=== PATIENT | male | born 1960 | race Caucasian/White ===

== ENCOUNTER 2018-03-09 05:18 | Emergency (ER) | payer OTHER ==
--- NOTE | 2018-03-09 05:48 | EDM.PDOC ---
ED HPI GENERAL MEDICAL PROBLEM - General Chief Complaint: Lower Extremity Injury/Pain Stated Complaint: LEFT LEG PAIN Time Seen by Provider: 03/09/18 05:21 Source of Information: Reports: Patient History Limitations: Reports: No Limitations - History of Present Illness INITIAL COMMENTS - FREE TEXT/NARRATIVE: History of present illness: []Patient states he tumbled approximately 30 feet down a snowy hill at 3:30 this morning twisting his left ankle. He denies any loss of consciousness or any other injuries. Review of systems: As per history of present illness and below otherwise all systems reviewed and negative. Past medical history: As per history of present illness and as reviewed below otherwise noncontributory. Surgical history: As per history of present illness and as reviewed below otherwise noncontributory. Social history: No reported history of drug or alcohol abuse. Family history: As per history of present illness and as reviewed below otherwise noncontributory. Physical exam: General: Well developed, well nourished in NAD HEENT: Atraumatic, normocephalic, pupils reactive, negative for conjunctival pallor or scleral icterus, mucous membranes moist, throat clear, neck supple, nontender, trachea midline. Lungs: Clear to auscultation, breath sounds equal bilaterally, chest nontender. Heart: S1S2, regular, negative for clicks, rubs, or JVD. Abdomen: NABS, Soft, nondistended, nontender. Negative for masses or hepatosplenomegaly. Negative for costovertebral tenderness. Pelvis: Stable nontender. Genitourinary: Deferred. Rectal: Deferred. Extremities: Left ankle with tenderness over medial lateral malleolus with swelling and distally, negative for cords or calf pain. Neurovascular unremarkable. Neuro: Awake, alert, oriented. Cranial nerves II through XII unremarkable. Cerebellum unremarkable. Motor and sensory unremarkable throughout. Exam nonfocal. Skin:warm and dry Diagnostics: X-rays left ankle-fractured fibula Therapeutics: Declined pain meds, ankle boot, crutches ED Course: Unremarkable Impression: Left ankle fracture-closed Prescriptions: Declined, patient will take ibuprofen Plan: follow-up with Dr. Hyatt, shahida, Domingo dutton for pain. Return if symptoms worsen or change Definitive disposition and diagnosis as appropriate pending reevaluation and review of above. left ankle Pain Score (Numeric/FACES): 7 - Related Data Allergies Allergy/AdvReac Type Severity Reaction Status Date / Time No Known Allergies Allergy Verified 03/09/18 05:41 Home Meds: Home Meds Albuterol Sulfate [Proair Hfa] 1 puff IN ASDIRECTED PRN 03/09/18 [History] Social & Family History - Tobacco Use Smoking Status *Q: Never Smoker - Recreational Drug Use Recreational Drug Use: No Review of Systems - Review of Systems Review Of Systems: ROS reveals no pertinent complaints other than HPI. ED EXAM, GENERAL - Physical Exam Exam: See Below Course - Vital Signs Last Recorded V/S: Last Vital Signs Temp 98 F 03/09/18 05:25 Pulse 80 03/09/18 05:25 Resp 16 03/09/18 05:25 BP 130/70 03/09/18 05:25 Pulse Ox 95 03/09/18 05:25 - Orders/Labs/Meds Orders: Active Orders 24 hr Category Date Time Status Ankle Min 3V Lt [CR] Stat Exams 03/09/18 05:41 Ordered Ankle Min 3V Lt [CR] Stat Exams 03/09/18 05:59 Stop Req Departure - Departure Time of Disposition: 06:08 Disposition: Home, Self-Care 01 Condition: Good Clinical Impression: Closed left fibular fracture Qualifiers: Encounter type: initial encounter Fibula location: distal Fracture morphology: unspecified fracture morphology Qualified Code(s): S82.832A - Other fracture of upper and lower end of left fibula, initial encounter for closed fracture - Discharge Information *PRESCRIPTION DRUG MONITORING PROGRAM REVIEWED*: No *COPY OF PRESCRIPTION DRUG MONITORING REPORT IN PATIENT SALMA: No Referrals: Terry Gordon MD [Primary Care Provider] - Marisel Hyatt MD [Physician] - 3 Days Forms: ED Department Discharge Additional Instructions: The following information is given to patients seen in the emergency department who are being discharged to home. This information is to outline your options for follow-up care. We provide all patients seen in our emergency department with a follow-up referral. The need for follow-up, as well as the timing and circumstances, are variable depending upon the specifics of your emergency department visit. If you don't have a primary care physician on staff, we will provide you with a referral. We always advise you to contact your personal physician following an emergency department visit to inform them of the circumstance of the visit and for follow-up with them and/or the need for any referrals to a consulting specialist. The emergency department will also refer you to a specialist when appropriate. This referral assures that you have the opportunity for follow-up care with a specialist. All of these measure are taken in an effort to provide you with optimal care, which includes your follow-up. Under all circumstances we always encourage you to contact your private physician who remains a resource for coordinating your care. When calling for follow-up care, please make the office aware that this follow-up is from your recent emergency room visit. If for any reason you are refused follow-up, please contact the [facility] Emergency Department at and asked to speak to the emergency department charge nurse. Ice, elevate, Motrin for pain, use crutches for ambulation, follow-up with Dr. Hyatt. Turn to ER if symptoms worsen or change before then. [facility] [address], [address] [place] [address] - My Orders Last 24 Hours: My Active Orders 03/09/18 05:41 Ankle Min 3V Lt [CR] Stat 03/09/18 05:59 Ankle Min 3V Lt [CR] Stat - Assessment/Plan Last 24 Hours: My Active Orders 03/09/18 05:41 Ankle Min 3V Lt [CR] Stat 03/09/18 05:59 Ankle Min 3V Lt [CR] Stat
--- NOTE | 2018-03-09 20:48 | CR ---
EXAM DATE: 03/09/18 PATIENT'S AGE: 57 Patient: IVANA GARDNER Facility: [place], [place] Site . Site : [id number] Study: XRay Extremity Left ankle-03/09/2018 6:03:13 AM Ordering Physician: Tito Thomas Final Report: Indication: Injury and pain Technique: Left ankle 3 views Comparison: None Findings/Impression: Bones: Acute nondisplaced fractures present in the distal fibula. No other fractures. Alignment is normal. Joint spaces: Ankle mortise is congruent. Soft tissues: There is generalized soft tissue swelling. Dictated by Ezequiel Hernandez MD @ Mar 09 2018 6:10AM (Electronic Signature) Report Signed by Proxy. SAI
== END 2018-03-09 06:25 | disposition home or self-care (01) ==
LOC: MW.ED 05:18
DX: S82.832A Other fracture of upper and lower end of left fibula, initial encounter for closed fracture (principal); X50.1XXA Overexertion from prolonged static or awkward postures, initial encounter; Y93.29 Activity, other involving ice and snow; Y92.828 Other wilderness area as the place of occurrence of the external cause
CPT/HCPCS: 73610-26-LT; 73610-LT; 99283

== ENCOUNTER 2018-03-17 08:17 | Day surgery (SDC) | payer OTHER ==
[~2018-03-17 08:17] MED LIST: Dexamethasone 4 MG/ML 5 ML MDV ONE; Midazolam 1 MG/ML 2 ML SDV ONE; Ondansetron 4 MG/2 ML SDV ONE; Propofol 200 MG/20 ML SDV ONE; ceFAZolin 2 GM in Premix Bag 1 BAG IV SCH; fentaNYL 250 MCG/5 ML SDV ONE
[2018-03-17] MEDS ORDERED: Lactated Ringers 1,000 ML IV SCH (08:30)
--- NOTE | 2018-03-17 08:57 | PCM.PREANE ---
Preanesthetic Assessment - Anesthesia/Transfusion/Family Hx Anesthesia History: Prior Anesthesia Without Reaction Family History of Anesthesia Reaction: No Transfusion History: No Prior Transfusion(s) Intubation History: Unknown - Review of Systems General: No Symptoms Pulmonary: No Symptoms Cardiovascular: No Symptoms Gastrointestinal: No Symptoms Neurological: No Symptoms Other: Reports: None - Physical Assessment Height: 1.8 m Weight: 79.379 kg ASA Class: 5E Emergency Airway Class: Mallampati = 2 Dentition: Reports: Normal Dentition (small chips- multiple) Thyro-Mental Finger Breadths: 3 Mouth Opening Finger Breadths: 3 ROM/Head Extension: Full Lungs: Clear to Auscultation, Normal Respiratory Effort Cardiovascular: Regular Rate, Regular Rhythm - Allergies Allergies/Adverse Reactions: Allergies Allergy/AdvReac Type Severity Reaction Status Date / Time No Known Allergies Allergy Verified 03/12/18 11:03 - Blood Blood Available: No - Anesthesia Plan Pre-Op Medication Ordered: None - Acknowledgements Anesthesia Type Planned: General Anesthesia Pt an Appropriate Candidate for the Planned Anesthesia: Yes Alternatives and Risks of Anesthesia Discussed w Pt/Guardian: Yes Pt/Guardian Understands and Agrees with Anesthesia Plan: Yes PreAnesthesia Questionnaire HEENT History: Reports: Hard of Hearing, Other (See Below) Other HEENT History: wears glasses/contacts, states has some hearing loss- no hearing aides Respiratory History: Reports: Asthma (mild) Other Respiratory History: uses inhaler 1-2x daily Neurological History: Reports: Concussion, Other (See Below) Other Neuro History: hx of motion sickness - Past Surgical History HEENT Surgical History: Reports: Naso-Sinus Surgery Other HEENT Surgeries/Procedures: hx of fx nose and Septoplasty Neurological Surgical History: Reports: Laminectomy - SUBSTANCE USE Smoking Status *Q: Never Smoker Recreational Drug Use History: No - HOME MEDS Home Medications: Home Meds Albuterol Sulfate [Proair Hfa] 1 puff INH ASDIRECTED PRN 03/09/18 [History] - CURRENT (IN HOUSE) MEDS Current Meds: Current Medications Cefazolin Sodium/Dextrose 2 gm (/ Premix) 50 mls @ 100 mls/hr IV ONETIME GHASSAN Lactated Ringer's (Ringers, Lactated) 1,000 mls @ 125 mls/hr IV ASDIRECTED GHASSAN Discontinued Medications Dexamethasone (Dexamethasone) Confirm Administered Dose 20 mg .ROUTE .STK-MED ONE Stop: 03/17/18 07:17 Fentanyl (Sublimaze) Confirm Administered Dose 250 mcg .ROUTE .STK-MED ONE Stop: 03/17/18 07:16 Lidocaine HCl (Xylocaine-Mpf 1%) Confirm Administered Dose 5 mls @ as directed .ROUTE .[facility]-MED ONE Stop: 03/17/18 07:17 Midazolam HCl (Versed 1 Mg/Ml) Confirm Administered Dose 2 mg .ROUTE .ST-MED ONE Stop: 03/17/18 07:16 Ondansetron HCl (Zofran) Confirm Administered Dose 4 mg .ROUTE .STK-MED ONE Stop: 03/17/18 07:17 Propofol (Diprivan 20 Ml) Confirm Administered Dose 200 mg .ROUTE .ST-MED ONE Stop: 03/17/18 07:16
[2018-03-17] MEDS ORDERED: ceFAZolin/Dextrose,Iso-Osmotic 2 GM/50 ML Duplex Bag IV ONE (09:50)
[2018-03-17] MEDS ORDERED: Bupivacaine 0.25% 10 ML SDV ONE (09:56)
--- NOTE | 2018-03-17 11:04 | PCM.OPNOTE ---
- General Post-Op/Procedure Note Date of Surgery/Procedure: 03/17/18 Operative Procedure(s): ORIF left ankle lateral malleolus and syndesmosis Pre Op Diagnosis: left ankle lateral malleolus fx Post-Op Diagnosis: same plus syndesmotic dysruption Anesthesia Technique: General ET Tube Primary Surgeon: Chan Gonzalez Mai Investigator: Asha Montalvo in mLs: 10 Complications: none Condition: Good
[2018-03-17] MEDS ORDERED: Acetaminophen/HYDROcodone 325-5 MG Tab PO PRN (11:05)
[2018-03-17] MEDS: fentaNYL 100 MCG/2 ML SDV IVPUSH PRN ×4 (11:58→13:55)
--- NOTE | 2018-03-17 12:14 | PCM.POSTAN ---
POST ANESTHESIA ASSESSMENT - MENTAL STATUS Mental Status: Alert, Oriented - RESPIRATORY Respiratory Status: Respiratory Rate WNL, Airway Patent, O2 Saturation Stable - CARDIOVASCULAR CV Status: Pulse Rate WNL, Blood Pressure Stable - GASTROINTESTINAL GI Status: No Symptoms - PAIN Pain Score: 4 - POST OP HYDRATION Hydration Status: Adequate & Stable - OBSERVATIONS Free Text/Narrative:: Pt stable with good pain control.
--- NOTE | 2018-03-17 13:42 | OR ---
SURGEON: Chan Shepard MD DATE OF PROCEDURE: 03/17/2018 [facility] ARCHITECT: Asha Montalvo PA-C PREOPERATIVE DIAGNOSIS: Left ankle lateral malleolus fracture. POSTOPERATIVE DIAGNOSIS: Left ankle lateral malleolus fracture plus syndesmotic disruption. ANESTHESIA: General. COMPLICATIONS: None. ESTIMATED BLOOD LOSS: 10 mL. SPECIMENS: None. TOURNIQUET TIME: 20 minutes. IMPLANTS: Murray four-hole fibular distal locking plate; one 3.5 interfragmentary screw, four 3.5 nonlocking screws, and three 3.5 locking screws; Charles ZipTight syndesmotic fixation device. INDICATIONS: The patient is a 57-year-old male with above diagnosis. He has widening on stress views. Therefore, we discussed the risks, benefits, alternatives and complications of open reduction and internal fixation including, but not limited to, infection, neurovascular injury, continued pain, nonresolution of symptoms, DVT, PE, malunion, nonunion, delayed union, and he wished to proceed. DESCRIPTION OF PROCEDURE: The patient was seen in the preoperative area. Operative extremity was marked with the patient. He was transferred to operating room and placed supine on the operating table. General anesthesia was induced. An endotracheal tube was placed. He received preop antibiotics with Ancef. The left lower extremity was prepped and draped in sterile fashion using alcohol, followed by ChloraPrep. After placing a well-padded upper thigh tourniquet, a formal time-out was taken, identifying the correct patient, procedure, and extremity. Limb was exsanguinated with an Esmarch, pneumatic tourniquet was inflated to 250 mmHg. An 8-cm incision centered over the lateral malleolus was made. Dissection was carried down through to subcutaneous tissue. The superficial peroneal nerve was looked for, it was not identified, and it was not in the field. The fracture was readily identified. It was irrigated out and cleaned out and then a reduction clamp was used to reduce it anatomically. An interfragmentary screw was placed from proximally superior to distally posterior, and then a four-hole plate was placed laterally. Three proximal 3.5 nonlocking screws and one distal 3.5 nonlocking screw were placed, and this was bicortical, and three distal locking screws were placed in the distal part of the fibula. X-ray confirmed the anatomic reduction. There was widening of the mortise with stress views; therefore, a large periarticular reduction clamp was placed after placing a small medial incision and then a drill was placed 1 cm above the joint aiming for about 20 to 30 degrees of the ankle up to that neutral, parallel to the joint service, and ZipTight fixation device was placed across and secured down. The clamp was removed and further stress view showed no widening of the medial mortise. The wound was then thoroughly irrigated. Final fluoroscopic views showed anatomic reduction. The fascia was closed with 0 Vicryl, subcutaneous tissue with 3-0 Vicryl, and skin with ryanne. Xeroform sterile dressing and a [place] splint were placed. The patient was extubated in the operative room, transferred to the recovery room in stable condition. Sponge and needle counts were correct at the end of the case. There were no complications. He will be kept nonweightbearing. FREEDOM HAWKINS /[id number]
[2018-03-17] MEDS ORDERED: Acetaminophen/HYDROcodone 325-5 MG Tab PO ONE (13:52)
--- NOTE | 2018-03-17 14:19 | PCM48HPAN ---
Post Anesthesia Note - EVALUATION WITHIN 48HRS OF ANESTHETIC Vital Signs in Normal Range: Yes Patient Participated in Evaluation: Yes Respiratory Function Stable: Yes Airway Patent: Yes Cardiovascular Function Stable: Yes Hydration Status Stable: Yes Pain Control Satisfactory: Yes Nausea and Vomiting Control Satisfactory: Yes Mental Status Recovered: Yes Resp Rate: 18 - COMMENTS/OBSERVATIONS Free Text/Narrative:: no anesthesia problems
--- NOTE | 2018-03-17 16:19 | CR ---
EXAMINATION: Right ankle HISTORY: ORIF COMPARISON: 03/11/2018 TECHNIQUE: 6 operative control films provided FINDINGS/IMPRESSION: Operative control films demonstrate screw and plate fixation of a distal fibular fracture with a syndesmotic anchor noted.
== END 2018-03-17 14:50 | disposition home or self-care (01) ==
LOC: MW.SDS 08:17
PROVIDERS: ATTEND Orthopaedic Surgery
DX: S82.62XA Displaced fracture of lateral malleolus of left fibula, initial encounter for closed fracture (principal); S93.432A Sprain of tibiofibular ligament of left ankle, initial encounter; J45.909 Unspecified asthma, uncomplicated; W17.81XA Fall down embankment (hill), initial encounter
CPT/HCPCS: 27792; 27829; 76000; A9270; C1713; C1776; J0690; J1100; J2250; J2405; J2704; J3010; J3490; J7120